=== PATIENT | male | born 1995 | race Caucasian/White ===

== ENCOUNTER 2019-03-28 20:00 | Inpatient (IN) | payer SELFPAY ==
[2019-03-28 20:04] VITALS: BP 117/83; PULSE 100; RESP 16; TEMP 36.7; O2SAT 96; BMI 22.3
--- NOTE | 2019-03-28 20:19 | ED_ITS ---
Entered by Chinyere Segovia, acting as scribe for Lopez Martni MD HPI - Psych General: Chief Complaint: Psychiatric Symptoms Stated Complaint: si Time Seen by Provider: 03/28/19 20:18 Source: patient Mode of arrival: ambulatory Limitations: no limitations History of Present Illness: HPI Narrative: 24 yo m came to the er pov for SI. Onset was today. Pt states that he has not seen his son in 2 years and just would like to end it all. Pt states that he has been off of his meds for about a month. Pt states that he does have a plan at this time. Pt states that he wants to go to his friends house to get there gun and end his life. Pt also states that he is seeing things as well. complaint: suicidal ideation Onset (ago): day(s) (today) Duration: constant History of same: Yes Relieving factors: none Exacerbating factors: none Context: not taking psychiatric medications Associated psychiatric symptoms: suicidal ideation and delusions Associated symptoms: Reports delusions, depression and suicidal ideation Treatments prior to arrival: none If self harm: has plan Details of plan: Pt states that he is going to get a gun from his friends house and end his life. Review of Systems General: Reports: other (negative unless marked) Const: Denies: fever, chills, body aches or change in appetite Eyes: Denies: blurry vision or eye discomfort ENMT: Denies: throat pain or dental pain Card: Denies: chest pain Resp: Denies: shortness of breath GI: Denies: abdominal pain, nausea, vomiting or diarrhea : Denies: painful urination Musc: Denies: neck pain or back pain Skin/Breast: Denies: rash Neuro: Denies: headache Psych: Reports: depression and suicidal ideation Logan/Lymph: Denies: easy bruising All/Imm: Denies: hives PFSH ED PFSH: Statuses (acute, chronic, etc) shown below reflect problem list status as previously entered and may not be historically accurate Social History Smoking and tobacco status: former smoker Physical Exam Const: COMMON NORMALS: no apparent distress, oriented x3 and healthy appearing HENMT: COMMON NORMALS: normocephalic and head/scalp atraumatic HEAD & SCALP: normocephalic and atraumatic Eye: COMMON NORMALS: PERRL and EOMs intact bilaterally PUPIL: Yes PERRL Neck/C-Spine: COMMON NORMALS: full ROM and supple Chest: COMMONS NORMALS: inspection of chest normal and palpation of chest normal Resp: COMMON NORMALS: normal respiratory effort, no retractions, no use of accessory muscles and clear to auscultation bilaterally AUSCULTATION: clear to auscultation bilaterally Cardio: COMMON NORMALS: regular rate, regular rhythm and no murmurs RATE: regular rate RHYTHM: regular rhythm GI: COMMON NORMALS: normal to inspection, nondistended, normoactive bowel sounds, soft to palpation, non-tender and no masses PALPATION: Yes soft Extremity: COMMON NORMALS: normal to inspection and full ROM Neuro: COMMON NORMALS: oriented x3, moves all extremities and no focal motor deficits Psych: COMMON NORMALS: mental status grossly normal, thought process normal and cooperative MOOD & AFFECT: Yes depressed mood THOUGHT PROCESS: normal thought process THOUGHT CONTENT: Yes delusion(s) Skin: COMMON NORMALS: no rashes or lesions noted and no wounds GENERAL SKIN EXAM: no rashes or lesions noted MDM - Psych MDM Narrative: Medical decision making narrative: Patient presents with suicidal ideation along with hallucinations. Patient is well-appearing here and is medically cleared. I spoke to Dr. Brooks in the psychiatric unit and will admit. Lab Data: Labs: Lab Results 03/28/19 03/28/19 Range/Units 20:27 20:27 WBC 6.2 (4.0-10.0) 10^3/ uL RBC 5.38 H (4.1-5.3) 10^6/u L Hgb 14.9 (11.7-16.6) g/dL Hct 44.4 (42.0-52.0) % MCV 82.5 (80-94) fL MCH 27.7 L (28.0-34.0) pg MCHC 33.6 (30.0-36.0) g/dL RDW 12.1 (12.1-15.1) % Plt Count 252 (130-400) 10^3/c mm MPV 9.7 (7.4-10.4) fL Neut % (Auto) 57.2 % Lymph % (Auto) 31.7 % Benton % (Auto) 8.6 % Eos % (Auto) 1.6 % Baso % (Auto) 0.7 % Neut # (Auto) 3.5 (1.8-7.7) 10^3/u L Lymph # (Auto) 2.0 (0.8-4.8) 10^3/u L Benton # (Auto) 0.5 (0.2-0.9) 10^3/u L Eos # (Auto) 0.1 (0.0-0.8) 10^3/u L Baso # (Auto) 0.0 (0.0-0.1) 10^3/u L Nucleated RBC % (a uto) 0 % Nucleated RBCs # 0.0 /100WBC Sodium 142 (136-145) mmol/L Potassium 3.9 (3.5-5.1) mmol/L Chloride 102 (98-107) mmol/L Carbon Dioxide 31 H (22-29) mmol/L Anion Gap 12.9 (5-19) BUN 21 H (6-20) mg/dL Creatinine 1.2 (0.7-1.2) mg/dL GFR Calculation 73.2 L (90-130) mL/min Glucose 124 H (65-115) mg/dL Calcium 10.0 (8.5-10.5) mg/dL Total Bilirubin 0.4 (0.15-1.2) mg/dL AST 17 (0-40) U/L ALT 16 (0-41) U/L Alkaline Phosphata se 50 (40-130) IU/L Total Protein 7.4 (6.6-8.7) g/dL Albumin 4.8 (3.5-5.2) g/dL Globulin 2.6 (1.3-4.6) g/dL Salicylates < 0.3 L (3-10) mg/dL Acetaminophen < 5.0 L (10-30) ug/mL Ethyl Alcohol < 10 (0-10) mg/dL Discharge Plan Discharge Patient Disposition: Admitted As Inpatient Clinical Impression: Suicidal ideation Condition: Stable Referrals: Tomas Flaherty Jr, MD [Primary Care Provider] - Coding Level of Care Code ED Portainer Operator for Chg Fwd The documentation recorded by the Luca bo Stephanie Lyn, accurately reflects the service I personally performed and the decisions made by Mario harris Korby, MD Mar 28, 2019 20:00
[2019-03-28 20:38] LABS: Basophils % 0.7 %; Eosinophils # 0.1 10^3/uL (0.0-0.8); Eosinophils % 1.6 %; Hematocrit 44.4 % (42.0-52.0); Hemoglobin 14.9 g/dL (11.7-16.6); Lymphocytes % 31.7 %; Mean Corpuscular HGB Conc 33.6 g/dL (30.0-36.0); Mean Corpuscular Hemoglobin 27.7 pg (28.0-34.0); Mean Corpuscular Volume 82.5 fL (80-94); Mean Platelet Volume 9.7 fL (7.4-10.4); Monocytes # 0.5 10^3/uL (0.2-0.9); Monocytes % 8.6 %; Neutrophils # 3.5 10^3/uL (1.8-7.7); Neutrophils % 57.2 %; Nucleated Red Blood Cells % 0 %; Platelet Count 252 10^3/cmm (130-400); Red Blood Count 5.38 10^6/uL (4.1-5.3); Red Cell Distribution Width 12.1 % (12.1-15.1); White Blood Count 6.2 10^3/uL (4.0-10.0)
[2019-03-28] MEDS: LORazepam 1 mg Tablet PO (20:55)
[2019-03-28 21:01] LABS: Alanine Aminotransferase 16 U/L (0-41); Albumin Level 4.8 g/dL (3.5-5.2); Alkaline Phosphatase 50 IU/L (40-130); Anion Gap 12.9 (5-19); Aspartate Amino Transferase 17 U/L (0-40); Blood Urea Nitrogen 21 mg/dL (6-20); Carbon Dioxide 31 mmol/L (22-29); Chloride 102 mmol/L (98-107); Globulin 2.6 g/dL (1.3-4.6); Glomerular Filtration Rate 73.2 mL/min (90-130); Glucose 124 mg/dL (65-115); Potassium 3.9 mmol/L (3.5-5.1); Sodium 142 mmol/L (136-145); Total Bilirubin 0.4 mg/dL (0.15-1.2); Total Protein 7.4 g/dL (6.6-8.7)
[2019-03-28 21:06] LABS: Acetaminophen < 5.0 ug/mL (10-30); Alcohol Level < 10 mg/dL (0-10); Salicylate < 0.3 mg/dL (3-10)
[2019-03-28 21:29] LABS: Amphetamines Screen Urine Negative (Negative); Barbiturates Screen Urine Negative (Negative); Benzodiazepines Screen Urine Negative (Negative); Cocaine Screen Urine Negative (Negative); Opiate Screen Urine Negative (Negative); PCP Screen Urine Negative (Negative); THC Screen Urine Positive (Negative)
[2019-03-28 21:42] VITALS: BP 119/63; PULSE 88; RESP 16; TEMP 36.7; O2SAT 100
[2019-03-28 21:55] VITALS: BP 103/78; PULSE 84; RESP 17; TEMP 36.5; O2SAT 97
[2019-03-29 06:00] VITALS: BP 106/61; PULSE 75; RESP 17; TEMP 36.5; O2SAT 97
--- NOTE | 2019-03-29 09:26 | P.HP_ITS ---
Providers/Chief Complaint Admitting Physician: Keith Brooks MD Primary Care Provider: Tomas Flaherty Jr, MD Chief Complaint: si HPI NPU History of Present Illness Mariusz Moreno is a 24 year old male who presented to the emergency room endorsing suicidal ideation. He endorses having a history of elevated mood and diagnosis of bipolar disorder and that he has benefited in the past with lithium. He reported that what has put him on this time is that he is struggling trying to have a connection with his child but now he hasn't seen us out in a couple years and that is really causing him a lot of distress. We discussed the risks benefits and alternatives of restarting lithium which she reports she's had in the past and he understood and agreed to proceed as documented in his note. He reports that his symptoms and problems with mood dysregulation started in the last 5 years. He denies significant drug use but does report that he smokes marijuana and doesn't see that as a significant problem. He denies any history of suicide attempts. He reports that he is a daily smoker denies any other significant drugs. He reports that he is open to outpatient treatment and knows that he has to get it but that he is overwhelmed with the situation with his son. Psychiatric history: He denies any past psychiatric inpatient stays and reports he is limited medication trials. Substance abuse history: Endorses smoking cigarettes and marijuana but denies any other significant or illicit drug use. He's never been to rehabilitation or had a DUI. Family history: He denied any contributory history. Developmental history: He denied any developmental issues or problems during his mother's or delivery of him. Psychosocial history: He reports that he does have a son, that he is generally stayed employed and he denied currently being . Meds NPU Home Medications Medication Instructions Recorded Confirmed Type No Known Home Medications 03/28/19 03/28/19 History Allergies Allergy/AdvReac Type Severity Reaction Status Date / Time Pertussis Vaccines Allergy Unknown Verified 03/28/19 20:04 PFS NPU PFSH: Statuses (acute, chronic, etc) shown below reflect problem list status as previously entered and may not be historically accurate Social History Smoking and tobacco status: current every day smoker Mental Status Exam MSE Comments: Is a well-nourished well-developed white male with adequate dress grooming and eye contact. No abnormal movements except for some psychomotor agitation. Cooperative with exam in no acute distress speech was slightly increased rate and volume mood described as okay affect slightly energetic. Thought process organized. Thought content: Patient denied any suicidal or homicidal ideations, there were no delusions reported or noted, he denied any auditory or visual hallucinations. Attention and concentration were intact memory appeared mostly reliable and none were formally tested. He is alert and oriented ?3. Insight and judgment were limited but improving. Vitals/I&O/Wt Last Vital Signs temperature 97.7, pulse 75, respirations 17, pulse ox 97%, blood pressure 106/61. Weight last 48 hrs Weight 72.575 kg Data NPU : 03/28/19 20:27 03/28/19 20:27 A&P Assessment and plan (1) Bipolar 1 disorder: This is a 24-year-old white male who presents with symptoms and history consistent with bipolar disorder which has been well managed with lithium reportedly who expresses an interest in restarting his medication. 1. Continue current medication. Initiate lithium and Paxil. 2. Encourage individual, group and milieu therapy. 3. Continue every 15 minute checks for safety. 4. We'll work with the treatment team to find outpatient services after discharge. Status: Acute Code(s): F31.9 - Bipolar disorder, unspecified (2) Cannabis use disorder, moderate, dependence: Status: Acute Code(s): F12.20 - Cannabis dependence, uncomplicated Involuntary Hold Information 96 Hour Hold: 96 Hour Involuntary Admission: Yes 96 Hour Hold Ending Date: 04/01/19 96 Hour Hold Ending Time: 20:28 Attestations NPU Medical Necessity Statement*: Inpatient hospitalization is medically necessary and be clinically appropriate intervention at this time. We will monitor medications and adjust as indicated. He will be in the hospital for over two midnights. Likely length of stay 2-4 days. Coding Level of Care Code Acute Accounts Payable Or Receivable Clerk for Marilyn Morgan Diagnoses Bipolar 1 disorder F31.9 Cannabis use disorder, moderate, dependence F12.20
[2019-03-29 13:20] VITALS: BP 110/68; PULSE 92; RESP 20; TEMP 36.9; O2SAT 97
[2019-03-29 21:11] VITALS: BP 103/64; PULSE 89; RESP 17; TEMP 37; O2SAT 96
[2019-03-30 06:00] VITALS: BP 84/53; PULSE 61; RESP 16; TEMP 36.4; O2SAT 95
[2019-03-30] MEDS: lithium carbonate 300 mg Capsule PO ×2 (08:39→17:02)
[2019-03-30] MEDS: PARoxetine 20 mg Tablet PO (08:40)
[2019-03-30 14:00] VITALS: BP 122/70; PULSE 89; RESP 18; TEMP 36.7; O2SAT 97
--- NOTE | 2019-03-30 14:59 | P.PN_ITS ---
Subjective NPU Subjective: Interval history: The patient and I get acquainted today. He describes visual illusions, wherein the words on a printed page or pictures began to deform themselves and move around. He says that he had been on lithium and stopped it a month ago. He now considers that a bad idea. I asked him what the lithium actually does for him. He indicated that it balances out my mood swings and even stops these illusions. He would like to get back on his lithium and I see that Dr. Brooks has initiated a modest dose, from which he will no doubt titrate. Blood levels will be our guide. Mental Status Exam MSE Comments: The patient is alert and oriented to person, place, time, and situation. Hygiene is clean. Sensorium is clear and he understands what we tell him. The patient maintains appropriate eye contact, is cooperative and relates well to me. Behavior shows no psychomotor agitation. Mood is anxious and euthymic. Affect is appropriate. Thought processes are slightly scattered and mildly racing but they are free of blocking and looseness of association. Speech is of normal rate and soft, almost inaudible at times, without dysarthria or aprosody. There is a slight amount of pressure. There is no inordinate latency of response. The patient acknowledges visual illusions but denies auditory hallucinations. He has no delusions. The patient denies suicidal or homicidal ideation, plan or intent. He exhibits no assaultive behavior. Memory is intact for recent and remote events. Fund of knowledge is adequate given vocabulary. Insight and judgment were deemed to be good given the recognition of problems and desire for treatment. Vitals/I&O/Wt Last Vital Signs Temp 98.0 F 03/30/19 14:00 Pulse 89 03/30/19 14:00 Resp 18 03/30/19 14:00 BP 122/70 03/30/19 14:00 Pulse Ox 97 03/30/19 14:00 Weight last 48 hrs Weight 160 lb Data NPU : 03/28/19 20:27 03/28/19 20:27 A&P Additional A&P Information Additional A&P Information This is a 23-year-old white male with a long history of visual illusions and bipolar disorder who has a history of excellent response to lithium carbonate titration, including balancing out his mood swings and eliminating the visual illusions. 1. Continue current medication, with titration of lithium apace. 2. Encourage individual, group and milieu therapy. 3. Continue every 15 minute checks for safety. 4. Discharge plan to include psychopharmacologic follow-up at [facility]. Involuntary Hold Information 96 Hour Hold: 96 Hour Involuntary Admission: Yes 96 Hour Hold Ending Date: 04/01/19 96 Hour Hold Ending Time: 20:28 Attestations NPU Medical Necessity Statement*: This patient has just begun to respond to pharmacotherapy. I anticipate 6-7 midnights' additional hospitalization. Coding Level of Care Code Acute Intensive Care Nurse for Marilyn Morgan
[2019-03-30 19:57] VITALS: BP 115/72; PULSE 78; RESP 19; TEMP 36.7; O2SAT 97
[2019-03-31 06:00] VITALS: BP 105/65; PULSE 64; RESP 18; TEMP 36.7; O2SAT 98
[2019-03-31] MEDS: PARoxetine 20 mg Tablet PO (08:29)
[2019-03-31] MEDS: lithium carbonate 300 mg Capsule PO (08:29)
--- NOTE | 2019-03-31 09:49 | PM.NPN ---
Subjective NPU Subjective: Interval history: patient states that historically he has taken 1200 mg of lithium daily to produce a blood lithium level of 0.9-1.2 and this has been effective in managing his mood control. Like to be put back on the 1200 mg. However he also notes that his weight has dropped considerably since he was on that dosage. Otherwise he reports himself doing well. He is looking forward to discharge and has plans on where he will go. He denies presence of suicidal or homicidal ideation. Mental Status Exam MSE Comments: The patient is alert and oriented to person, place, time, and situation. Hygiene is clean. Sensorium is clear and he understands what we tell him. The patient maintains appropriate eye contact, is cooperative and relates well to me. Behavior shows no psychomotor agitation. Mood is anxious and euthymic. Affect is appropriate. Thought processes are focused and free of blocking and looseness of association. Speech is of normal rate and soft, without dysarthria or aprosody. There is a slight amount of pressure. There is no inordinate latency of response. The patient denies auditory hallucinations. He has no delusions. The patient denies suicidal or homicidal ideation, plan or intent. He exhibits no assaultive behavior. Memory is intact for recent and remote events. Fund of knowledge is adequate given vocabulary. Insight and judgment were deemed to be good given the recognition of problems and desire for treatment. Cognition: Patient Appearance: Appropriate Level of Consciousness: Awake, Alert, Appropriate and Follows Commands Patient Orientation (long list): Person, Place and Time Comprehension Ability: No Impairment Hallucination Type: None Delusion Description: Not Present Thought Process: Appropriate Affect: Affect Description: Calm Behavior: Patient Behavior: Cooperative Speech Pattern: Clear Vitals/I&O/Wt Last Vital Signs Temp 98.1 F 03/31/19 06:00 Pulse 64 03/31/19 06:00 Resp 18 03/31/19 06:00 BP 105/65 03/31/19 06:00 Pulse Ox 98 03/31/19 06:00 Data NPU : 03/28/19 20:27 03/28/19 20:27 A&P Additional A&P Information Additional A&P Information This is a 23-year-old white male with a long history of visual illusions and bipolar disorder who has a history of excellent response to lithium carbonate titration, including balancing out his mood swings and eliminating the visual illusions. 1. Continue current medication, with titration of lithium apace. 2. Encourage individual, group and milieu therapy. 3. Continue every 15 minute checks for safety. 4. Discharge plan to include psychopharmacologic follow-up at [facility] hospital day #3: Patient gives a reasonable history of effective treatment with lithium. He was able to recite the dangers of lithium and signs of lithium toxicity. However given his change in body mass, we agreed to increase the dosage to only 900 mg daily. He is on a 96 hour involuntary commitment which is up tomorrow. He is not an imminent danger to risk to self or others. We discussed the dangers of leaving before getting a lithium level but he feels confident that this plan is safe.. Involuntary Hold Information 96 Hour Hold: 96 Hour Involuntary Admission: Yes 96 Hour Hold Ending Date: 04/01/19 96 Hour Hold Ending Time: 20:28 Attestations NPU Medical Necessity Statement*: patient will remain in the hospital 1 more night for his 96 hour involuntary commitment. Coding Level of Care Code Acute Sulfur Burner for Marilyn Morgan
[2019-03-31 13:07] VITALS: BP 133/88; PULSE 74; RESP 18; TEMP 36.4; O2SAT 99
[2019-03-31 18:45] VITALS: BP 133/88; PULSE 74; RESP 18; TEMP 36.4; O2SAT 99
[2019-03-31 21:25] VITALS: BP 117/78; PULSE 72; RESP 23; TEMP 36.8; O2SAT 97
[2019-03-31] MEDS: lithium carbonate 300 mg Capsule 600 MG PO (21:29)
[2019-04-01] MEDS: lithium carbonate 300 mg Capsule PO (05:19)
--- NOTE | 2019-04-01 12:46 | P.DS_ITS ---
Reason for Visit Reason for Visit: Reason For Visit: si Hospital Course Discharge Summary Date of Admission: 03/28/2019 Date pf Discharge: 04/01/2019 NOTE: There is no admission psychiatric evaluation on this patient. HPI Narrative: 24 yo m came to the er pov for SI. Onset was today. Pt states that he has not seen his son in 2 years and just would like to end it all. Pt states that he has been off of his meds for about a month. Pt states that he does have a plan at this time. Pt states that he wants to go to his friends house to get there gun and end his life. Pt also states that he is seeing things as well. MD complaint: suicidal ideation Interval history: The patient and I get acquainted today. He describes visual illusions, wherein the words on a printed page or pictures began to deform themselves and move around. He says that he had been on lithium and stopped it a month ago. He now considers that a bad idea. I asked him what the lithium actually does for him. He indicated that it balances out my mood swings and even stops these illusions. He would like to get back on his lithium and I see that Dr. Brooks has initiated a modest dose, from which he will no doubt titrate. Blood levels will be our guide. Mental Status Exam MSE Comments: The patient is alert and oriented to person, place, time, and situation. Hygiene is clean. Sensorium is clear and he understands what we tell him. The patient maintains appropriate eye contact, is cooperative and relates well to me. Behavior shows no psychomotor agitation. Mood is anxious and euthymic. Affect is appropriate. Thought processes are slightly scattered and mildly racing but they are free of blocking and looseness of association. Speech is of normal rate and soft, almost inaudible at times, without dysarthria or aprosody. There is a slight amount of pressure. There is no inordinate latency of response. The patient acknowledges visual illusions but denies auditory hallucinations. He has no delusions. The patient denies suicidal or homicidal ideation, plan or intent. He exhibits no assaultive behavior. Memory is intact for recent and remote events. Fund of knowledge is adequate given vocabulary. Insight and judgment were deemed to be good given the recognition of problems and desire for treatment. Additional A&P Information This is a 23-year-old white male with a long history of visual illusions and bipolar disorder who has a history of excellent response to lithium carbonate titration, including balancing out his mood swings and eliminating the visual illusions. 1. Continue current medication, with titration of lithium apace. 2. Encourage individual, group and milieu therapy. 3. Continue every 15 minute checks for safety. 4. Discharge plan to include psychopharmacologic follow-up at [facility]. This physician?s first contact with the patient is on hospital day #4: Patient gives a reasonable history of effective treatment with lithium. He was able to recite the dangers of lithium and signs of lithium toxicity. However given his change in body mass, we agreed to increase the dosage to only 900 mg daily. He is on a 96 hour involuntary commitment which is up tomorrow. He is not an imminent danger to risk to self or others. We discussed the dangers of leaving before getting a lithium level but he feels confident that this plan is safe.. Involuntary Hold Information 96 Hour Hold: 96 Hour Involuntary Admission: Yes 96 Hour Hold Ending Date: 04/01/19 96 Hour Hold Ending Time: 20:28 Mental Status Exam MSE Comments: Discharge Mental Status Exam: Appearance: hygiene is good; no gross neurological deficits., gait is unremarkable; AIMS=0 Speech: Speech is of normal rate and rhythm and easily understood. Thought processes: Thought processes are abstract. Judgment is adequate for saf ety. Associations: intact Psychotic processes: There is no indication of guarding or paranoia. There is no attention to the internal stimuli. Auditory and visual hallucinations are denied. Judgment: Insight is fair. Problem solving skills are adequate for safety. Orientation: The patient is oriented to person, place time and situation. Memory: no deficits noted in immediate, intermediate, or remote spheres. Attention: The patient is alert and interpersonally engaged. Language: Verbalizations are coherent. Fund of knowledge: Fund of knowledge is adequate. Affect/Mood: Affect is consistent with a euthymic mood. denied suicidal ideation Affective range is appropriate. Psychosis: perception unimpaired except through cognitive distortion; reality testing intact. Discharge Data Vitals: Last Vital Signs Temp 98.2 F 03/31/19 21:25 Pulse 72 03/31/19 21:25 Resp 23 H 03/31/19 21:25 BP 117/78 03/31/19 21:25 Pulse Ox 97 03/31/19 21:25 Discharge Plan Discharge Patient Disposition: Home, Self-Care Condition: Stable Prescriptions: New trazodone 50 mg Tablet 50 mg PO BEDTIME PRN (Reason: Sleep) Qty: 20 RF: 3 lithium carbonate 300 mg Capsule 300 mg PO QAM Qty: 30 RF: 3 lithium carbonate 300 mg Capsule 600 mg PO BEDTIME Qty: 30 RF: 3 paroxetine HCl 20 mg Tablet 20 mg PO DAILY Qty: 30 RF: 3 No Action No Known Home Medications RF: 0 Referrals: Tomas Flaherty Jr, MD [Primary Care Provider] - Patient Instructions: Trazodone (By mouth), Milmay (By mouth), Paroxetine (By mouth) Activity Restrictions/Additional Instructions: [facility] [address] [phone] Hours: Thursday-, 8 a.m. to 8 p.m. Thursday, 8 a.m. to 5 p.m. [facility]: 7:30 a.m. to 3:30 p.m. Services offered at this location: [facility] on [facility] houses psychiatry and therapy offices, as well as our new [facility] and our expanded [facility]. The [facility] is also located in [facility]. Discharge Date/Time: 04/01/19 05:34 Discharge Attestations NPU Time Spent in Discharge Care*: less than 30 min Coding Level of Care Code Acute Propulsion Motor And Generator Repairer for Marilyn Morgan
== END 2019-04-01 05:34 | disposition home or self-care (01) | DRG 881 ==
LOC: ER 21:24 → NP 21:38
PROVIDERS: Admitting Provider Psychiatry & Neurology Psychiatry; Emergency Provider Emergency Medicine; PCP Pediatrics Adolescent Medicine; Visit Provider Psychiatry & Neurology Psychiatry
DX: F32.9 Major depressive disorder, single episode, unspecified (principal); R45.851 Suicidal ideations; F17.210 Nicotine dependence, cigarettes, uncomplicated
CPT/HCPCS: 12345; 36415; 80053; 80307; 85025; 99282